=== PATIENT | male | born 1960 | race African-American/Black ===

== ENCOUNTER 2016-08-07 07:18 | Emergency (ER) | payer OTHER ==
[2016-08-07 07:24] VITALS: TEMP 97.5; BMI 25.8
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
[2016-08-07 08:25] VITALS: BP 160/90; PULSE 84
== END 2016-08-07 08:25 | disposition home or self-care (01) ==
LOC: JER 07:18
DX: S09.90XA Unspecified injury of head, initial encounter (principal); V49.9XXA Car occupant (driver) (passenger) injured in unspecified traffic accident, initial encounter; Y93.89 Activity, other specified; Y92.410 Unspecified street and highway as the place of occurrence of the external cause; I10 Essential (primary) hypertension
CPT/HCPCS: 99281-25